=== PATIENT | female | born 2000 | race Caucasian/White ===

== ENCOUNTER 2022-06-06 22:28 | Emergency (ER) | payer OTHER, SELFPAY ==
[2022-06-06 22:49] VITALS: BP 152/100; PULSE 70; RESP 16; TEMP 36.9; O2SAT 100; BMI 28.2
--- NOTE | 2022-06-06 22:53 | CRLHL7_ITS ---
For Patients: As a result of the Century Cures Act, medical imaging exams and procedure reports are released immediately into your electronic medical record. You may view this report before your referring provider. If you have questions, please contact your health care provider. Indication: Injury and pain. Technique: Left wrist 3 views. Comparison: None. Findings/Impression: Bones: Oblique nondisplaced fracture in the shaft of the left 3rd metacarpal. No other osseous abnormality. Joint spaces: Unremarkable. Soft tissues: Unremarkable. Dictated by Rogers Dillon MD @ 06/06/2022 11:18:24 PM (Electronically Signed)
--- NOTE | 2022-06-07 00:35 | ED.NURSE ---
xr images pushed to [facility] and radiology report sent with patient.
--- NOTE | 2022-06-07 03:20 | ED.UPPEXIN ---
HPI - Extremity Injury (Upper) General Chief Complaint: Extremity Pain/Injury, Upper Stated Complaint: Left Wrist Injury - Fall Time Seen by Provider: 06/06/22 22:54 History of Present Illness HPI narrative: 21-year-old young woman here with complaint of pain in her left hand. Was attending her 1st rugby practice at [employer]. Is somewhat unclear how she got hurt but ended up with her face in the dirt. Left hand appears to have been pinned or trapped or pulled somehow. No apparent significant head injury. No loss of consciousness. She is not nauseated. It is not intensely complaining of pain. No complaint of neck or back pain. Sounds like she had a rather remote injury to this arm as a child. Is right-handed. Related Data Home Medications Medication Instructions Recorded Confirmed birthcontrol 06/06/22 Allergies Allergy/AdvReac Type Severity Reaction Status Date / Time No Known Drug Allergies Allergy Verified 06/06/22 22:49 Review of Systems Status of ROS: Reports: 6 or more systems reviewed and unremarkable except as noted in History and below Exam Narrative: Exam Narrative: Pleasant. NAD. Well built. She is favoring her left arm/hand. Breathing easily. Speaking fluidly. The head looks to be atraumatic. Examination of the left upper extremity is without clear abrasion and no pain to palpation until where she indicated the mid dorsum of the left hand. She is sore to palpation over the left 3rd metacarpal. Well-perfused peripherally with intact sensation. No deformity other than some mild swelling over the dorsum of the hand. There is what I thought initially bruising over the distal ulna that this sounds to have been more staining from the turf. Able to open and close all fingers against resistance; just causes pain. Const: Vital Signs, click to edit/add: Vital Signs - 24 hr 06/06/22 22:49 Temperature 98.4 F Pulse Rate [Pulse Oximeter] 70 Respiratory Rate 16 Blood Pressure [Ri ght Upper Arm] 152/100 H Pulse Oximetry 100 Oxygen Delivery Me thod Room Air Documenting provider has reviewed patient's vital signs: yes Course Vital Signs Vital signs: Initial Vital Signs Temperature 98.4 F 06/06/22 22:49 Temperature Source Temporal Artery Scan 06/06/22 22:49 Pulse Rate 70 06/06/22 22:49 Respiratory Rate 16 06/06/22 22:49 Blood Pressure 152/100 H 06/06/22 22:49 Blood Pressure Mean 117 06/06/22 22:49 Pulse Oximetry 100 06/06/22 22:49 Oxygen Delivery Method 06/06/22 22:49 Vital Signs Temperature 98.4 F 06/06/22 22:49 Pulse Rate 70 06/06/22 22:49 Respiratory Rate 16 06/06/22 22:49 Blood Pressure 152/100 H 06/06/22 22:49 Pulse Oximetry 100 06/06/22 22:49 Oxygen Delivery Method 06/06/22 22:49 Temperature 98.4 F 06/06/22 22:49 Pulse Rate 70 06/06/22 22:49 Respiratory Rate 16 06/06/22 22:49 Blood Pressure 152/100 H 06/06/22 22:49 Pulse Oximetry 100 06/06/22 22:49 Oxygen Delivery Method 06/06/22 22:49 MDM - Extremity Injury (Upper) MDM Narrative Medical decision making narrative: X-rays of the left hand wrist area review by my read an oblique comminuted? fracture of the shaft of the 3rd metacarpal. Nondisplaced. Return to place an ulnar gutter splint. Think this just does capture the 3rd metacarpal though has to be shifted a little bit. Tolerates this well. Zara alignment. Discharge Plan Discharge Clinical Impression: Closed fracture of third metacarpal bone Patient Disposition: Home, Self-Care Condition: Stable Additional Instructions: You can remove the splint carefully to ice a few times daily over the next few days if you like. If you have a primary that does Orthopedics/casting you could follow-up with them late Saturday or Saturday. Could also follow-up with Orthopedics locally phone number [phone]. Following up in [place] is just fine as well. It would be okay to wait to be seen until early next week; point is we want swelling to be mostly resolved by the time you would be casted. Elevate for comfort. Can take up to 800 mg of ibuprofen or up to 1000 mg of acetaminophen per dose; alternative to the ibuprofen can be up to 500 mg naproxen 2 times daily. Prescriptions: No Action birthcontrol Stand Alone Forms: [employer] Info Instructions
== END 2022-06-07 00:37 | disposition home or self-care (01) ==
LOC: ED 06-07 00:25
PROVIDERS: Emergency Provider Family Medicine
DX: S62.303A Unspecified fracture of third metacarpal bone, left hand, initial encounter for closed fracture (principal)
CPT/HCPCS: 29515; 73110; 99283; 99284

== ENCOUNTER 2024-02-11 19:02 | Emergency (ER) | payer OTHER, SELFPAY ==
[2024-02-11 19:14] VITALS: BP 147/86; PULSE 77; RESP 16; TEMP 36.6; O2SAT 100; BMI 28.1
--- NOTE | 2024-02-11 19:15 | CRLHL7_ITS ---
For Patients: As a result of the Century Cures Act, medical imaging exams and procedure reports are released immediately into your electronic medical record. You may view this report before your referring provider. If you have questions, please contact your health care provider. INDICATION: Fall COMPARISON: None. TECHNIQUE: Two radiographic view(s) of the left wrist. FINDINGS: No evident acute displaced fracture. 4 millimeters negative ulnar variance. The joint spaces are grossly preserved. IMPRESSION: 1. No evident acute displaced fracture. If there is clinical concern for acute scaphoid fracture, recommend a repeat radiograph in 7-10 days. 2. Negative ulnar variance measuring 4 millimeters. Dictated by Ki Asif MD @ 02/11/2024 7:53:12 PM (Electronically Signed)
--- NOTE | 2024-02-11 19:33 | ED.UPPEXIN ---
HPI - Extremity Injury (Upper) General Time Seen by Provider: 19:33 Date Seen: 02/11/24 Chief Complaint: Extremity Pain/Injury, Upper Stated Complaint: L wrist injured at rugby Time Seen by Provider: 02/11/24 19:33 Source: patient, RN notes reviewed and old records reviewed Mode of arrival: ambulatory Limitations: no limitations History of Present Illness HPI narrative: 23-year-old female who comes in with left wrist injury. Another player landed on her left wrist at toward the practice and has pain around the wrist on the dorsum. Denies any other injuries right-handed Related Data Home Medications ?Medication ?Instructions ?Recorded ?Confirmed birthcontrol 06/06/22 Allergies Allergy/AdvReac Type Severity Reaction Status Date / Time No Known Drug Allergies Allergy Verified 06/06/22 22:49 Exam Narrative: Exam Narrative: General: well nourished , NAD Head: Atraumatic and normocephalic ENT: External ears and external nose are normal Eyes: Conjunctiva clear, pupils are equal reactive, external ocular motions are intact Neck: Full spontaneous range of motion of the neck Lungs: No respiratory distress Musculoskeletal: Mild tenderness on the extensor surface of the left wrist. Pain with passive wrist extension past the 80?, pain with passive wrist flexion past 80?, minimal pain with supination and pronation. Neurologic: No gross focal neurologic deficits Skin: No rashes Psych: Mood and affect are appropriate Const: Vital Signs, click to edit/add: Vital Signs - 24 hr 02/11/24 19:14 Temperature 98 F Pulse Rate [Pulse Oximeter] 77 Respiratory Rate 16 Blood Pressure [Ri ght Upper Arm] 147/86 H Pulse Oximetry 100 Oxygen Delivery Me thod Room Air Course Course ED Course: Reviewed prior emergency department records, patient previously seen November 2022 for 3rd metacarpal fracture. X-rays ordered from triage and independently interpreted by me negative for acute fracture. Patient with left wrist pain after injury today. Motion is relatively preserved with only some pain on the extensor surface with extremes of extension and flexion, no pain with passive or active supination or pronation. Wrist splint and anticipate discharge pending Radiology interpretation of x-ray Reevaluation(s) Time of Reevaluation #1: 19:54 Reevaluation #1: Reviewed radiology interpretation of wrist x-ray which is negative for acute fracture. Patient is stable for discharge Vital Signs Vital signs: Initial Vital Signs Temperature 98 F 02/11/24 19:14 Temperature Source Temporal Artery Scan 02/11/24 19:14 Pulse Rate 77 02/11/24 19:14 Respiratory Rate 16 02/11/24 19:14 Blood Pressure 147/86 H 02/11/24 19:14 Blood Pressure Mean 106 H 02/11/24 19:14 Pulse Oximetry 100 02/11/24 19:14 Oxygen Delivery Method Room Air 02/11/24 19:14 Vital Signs Temperature 98 F 02/11/24 19:14 Pulse Rate 77 02/11/24 19:14 Respiratory Rate 16 02/11/24 19:14 Blood Pressure 147/86 H 02/11/24 19:14 Pulse Oximetry 100 02/11/24 19:14 Oxygen Delivery Method Room Air 02/11/24 19:14 Temperature 98 F 02/11/24 19:14 Pulse Rate 77 02/11/24 19:14 Respiratory Rate 16 02/11/24 19:14 Blood Pressure 147/86 H 02/11/24 19:14 Pulse Oximetry 100 02/11/24 19:14 Oxygen Delivery Method Room Air 02/11/24 19:14 Discharge Plan Discharge Clinical Impression: Sprain and strain of wrist Patient Disposition: Home, Self-Care Condition: Stable Instructions: Wrist Sprain (ED) Additional Instructions: Elevate as able. Ice 15-20 minutes at a time every 2-3 hours while awake for the next 24 hours. Wear wrist splint for comfort Follow-up with orthopedics in 5-7 days if not better. Phone number is [phone] Activity Level: Activity as Tolerated and Wear Brace Discharge Diet: Regular Prescriptions: No Action birthcontrol Follow Up/Referrals: Provider,Not a Local [Primary Care Provider] - Stand Alone Forms: [employer] Info Instructions
--- OUTSIDE RECORDS SUMMARY | 2024-02-11 20:00 | XMS_ITS | Referral Summary ---
Author Organization [facility] Address [address] [place] [address] Care Team Providers Care Press Offbearer Name Role Phone Janki Ang M.D., M.P.H. Primary Care Pro vider Source Comments Patient records contain information from all sites at [facility]. For routine questions regarding patient records, call [phone] during business hours, M-F 8:00 AM - 5:00 PM Central Time. Record requests for emergency care only can be directed to [phone] at any time.[facility] Encounters Date Type Department Care Team Description 01/07/2024 Orders Only RST PCP [facility] Janki Ang M.D., M.P.H. Hypercholesterolemia from Last 3 Months Allergies No known active allergies Medications Medication Sig Dispensed Refills Start Date End Date Status acetaminophen (for_TYLENOL) 325 mg tablet Take 1-2 tablets by mouth as needed. pain 03/08/2014 Active ibuprofen (for_ADVIL,MOTRIN) 200 mg tablet Take 1 tablet by mouth as needed. pain 03/08/2014 Active norgestimate-ethinyl estradioL (ORTHO TRI-CYCLEN) 0.18 mg/0.215 mg/0.25 mg-35 mcg (28) per tablet TAKE 1 TABLET BY MOUTH DAILY DIRECTED 84 tablet 3 02/21/2022 Active cetirizine (ZyrTEC) 10 mg capsule Take 10 mg by mouth daily. 10/31/2022 Active benzonatate (TESSALON) 200 mg capsuleIndications:C ough Bronchospastic Take 1 capsule (200 mg total) by mouth 3 (three) times a day as needed for cough for up to 30 doses. Take with a full glass of water. 30 capsule 11/14/2022 Active Additional Information Patient not taking.Reported on 12/04/2022 predniSONE (DELTASONE) 20 mg tabletIndications:Co ugh Bronchospastic Take two tablets (40 mg) by mouth once daily for 2-3 days, then one tablet (20 mg) once daily for 7-10 days, then one-half tablet (10 mg) once daily for 7-10 days 30 tablet 12/04/2022 Active Active Problems Problem Noted Date Diagnosed Date Acne Cystic 10/11/2017 Hypercholesterolemia 07/29/2017 Overview (11/06/2021): HISTORY: - genetically proven familial hypercholesterolemia on her father's side. Dad and sister Elaina have higher lipid - per [facility] consult in 2018, Dr. Callahan, she likely has mixed hyperlipidemia due to lifestyle rather than FH. - Lipids: 11/15 Xynhb=506, DG=312, HDL=68, LBX=447, non-HDL+160 11/11 Kkhor=415, UZ=223 Immunizations Name Administration Dates Next Due 4vHPV (discontinued) 03/08/2014,09/30/2013 9vHPV 12/28/2014 DTaP / Hib 11/16/2003 DTaP, Unspecified 08/11/2007, 3,2002,2002 H1N1 Inj 08/17/2009 HepA Pediatric/Adolescent 03/23/2008,08/11/2007 HepB Pediatric/Adolescent 05/24/2003 Hib-HepB 2002,2002 IPV 08/11/2007, 3,2002,2002 Influenza Split 04/10/2012 Influenza, Injectable, Mdck, Quadrivalent 02/16/2021 Influenza, Seasonal, Injectable 05/05/2003,03/19 MCV4 (Menactra)(Discontinued) 12/18/2019 MCV4, Unspecified 09/30/2013 MMR 08/08/2005,08/10/2003 MMRV 08/11/2007 PCV7 (discontinued) 04/11/2004, 3,2002,2002 SARS-COV-2 (COVID-19) - PFIZ ER (Discontinued)(12 years or older) 04/24/2021,09/20/2020,08/30/2020 SARS-COV-2 (COVID-19) - PFIZ ER BIVALENT TS(Discontinued)(12 YEARS OR OLDER) 04/27/2022 Tdap 09/30/2013 LEXIS 08/10/2003 influenza LAIV (Nasal) (2 ye ars through 49 years) 03/08/2014 influenza trivalent LAIV (Na xavi) (2 years through 49 years) 05/08/2011,02/26/2009 influenza trivalent vaccine (6 months and older)(PF) 03/21/2010,03/23/2008 influenza vaccine quad (FLUZONE/FLUARIX) (6 months and older)(PF) 04/27/2022,04/06/2020,04/18/2013 Social History Tobacco Use Types Packs/Day Years Used Date Smoking Tobacco: Never Smokeless Tobacco: Never Tobacco Cessation:Counseling Given: Not Answered Alcohol Use Standard Drinks/Week Comments No 0 (1 standard drink = 0.6 oz pur e alcohol) Humiliation, Afraid, Rape, and Kick questionnair e Answer Date Recorded Within the last year, have y ou been afraid of your partner or ex-partner? No 08/10/2022 Within the last year, have y ou been humiliated or emotionally abused in other ways by your partner or ex-partner? No Within the last year, have y ou been kicked, hit, slapped, or otherwise physically hurt by your partner or ex-partner? No 08/10/2022 Within the last year, have y ou been raped or forced to have any kind of sexual activity by your partner or ex-partner? No 08/10/2022 Social Connection and Isolat ion Panel [NHANES] Answer Date Recorded In a typical week, how many times do you talk on the phone with family, friends, or neighbors? Three times a week 08/10/2022 How often do you get togethe r with friends or relatives? More than three times a week 08/10/2022 How often do you attend [facility] or oriental orthodox services? Never 08/10/2022 Do you belong to any clubs o r organizations such as yazidism groups, unions, fraternal or athletic groups, or school groups? Yes 08/10/2022 How often do you attend meet ings of the clubs or organizations you belong to? More than 4 times per year 08/10/2022 Are you , , di vorced, , never , or living with a partner? Never 08/10/2022 AUDIT-C Answer Date Recorded Q1: How often do you have a drink containing alc ohol? Monthly or less 08/10/2022 Q2: How many drinks containi ng alcohol do you have on a typical day when you are drinking? 3 or 4 08/10/2022 Q3: How often do you have si x or more drinks on one occasion? Never 08/10/2022 Overall Financial Resource Strain (CARDIA) Answe r Date Recorded How hard is it for you to pa y for the very basics like food, housing, medical care, and heating? Not hard at all 08/10/2022 PHQ-2 Answer Date Recorded PHQ-2 Score 0 06/07/2022 [facility] - Occupational Stress Questionnaire Answer Date Recorded Do you feel stress - tense, restless, nervous, or anxious, or unable to sleep at night because your mind is troubled all the time - these days? Rather much 08/10/2022 Exercise Vital Sign Answer Date Recorde d On average, how many days pe r week do you engage in moderate to strenuous exercise (like a brisk walk)? 3 days 08/10/2022 On average, how many minutes do you engage in exercise at this level? 70 min 08/10/2022 Hunger Vital Sign Answer Date Recorded Within the past 12 months, y ou worried that your food would run out before you got the money to buy more. Never true 08/11/19 23 Within the past 12 months, t he food you bought just didn't last and you didn't have money to get more. Never true 08/10/2022 PRAPARE - Transportation Answer Date Re corded In the past 12 months, has l ack of transportation kept you from medical appointments or from getting medications? No 07/25 In the past 12 months, has l ack of transportation kept you from meetings, work, or from getting things needed for daily living? No 08/10/2022 Housing Stability Vital Sign Answer Roger e Recorded In the last 12 months, was t here a time when you were not able to pay the mortgage or rent on time? No 08/10/2022 In the last 12 months, how many places have you lived? 2 08/10/2022 In the last 12 months, was t here a time when you did not have a steady place to sleep or slept in a longterm (including now)? No 08/10/2022 Nutrition Answer Date Recorded Nutrition: EVOO Fat Source No 08/10 On average, how many serving s of fruits and vegetables do you eat per day (serving size is equal to 1 cup or approximately the size of a tennis ball)? 2-3 08/10/2022 Dental Answer Date Recorded Dental: Regular Dentist Yes 06/05/19 Employment Answer Date Recorded Employment status N/A 08/10/2022 Education Answer Date Recorded What is the highest level of school you have completed or the highest degree you have received? 12th grade 09/27/2020 Sex and Gender Information Value Date Recorded Sex Assigned at Female 10/11/2021 9:55 AM CDT Gender Identity Female 10/11/2021 9:55 AM CDT Sexual Orientation Straight 10/11/2021 9: 55 AM CDT Last Filed Vital Signs Vital Sign Reading Time Taken Comments Blood Pressure 123/85 12/04/2022 9:11 AM CDT Pulse 85 12/04/2022 9:11 AM CDT regul ar Temperature 36.1 ??C (97 ??F) 12/04/2022 9:11 AM CDT Respiratory Rate 20 06/28/2018 11:21 PM [employer] Oxygen Saturation 100% 11/14/2022 6:05 PM CDT Inhaled Oxygen Concentration - - Weight 93.6 kg (206 lb 5.6 oz) 12/04/2022 9:11 A M CDT Height 170.4 cm (5' 7.09) 12/04/2022 9:11 AM CD T Body Mass Index 32.24 12/04/2022 9:11 AM CDT Plan of Treatment Upcoming Encounters Date Type Department Care Team (Late st Contact Info) Description 02/26/2024 8:00 AM CDT Office Visit Department of Family Medicine, [facility], in [place], [place] [address] [place] [address] Karen Giordano MPAS, P.A.-C. [address] [place] [phone] Procedures Procedure Name Priority Date/Time Associated Diagnosis Comments LIPID PANEL, S Routine 01/25/2023 9:51 AM CDT Hypercholesterolemia from Last 3 Months or Most Recently Relevant to Health Maintenance Results * (ABNORMAL) Lipid Panel (01/25/2023 9:51 AM CDT) Triglycerides 174(H) mg/dL 01/25/2023 12:20 PM CDT DTL Comment: ----REFERENCE VALUE---- Normal: <150 mg/dL Borderline High: 150-199 mg/dL High: 200-499 mg/dL Very High: > or =500 mg/dL Cholesterol, Total 266(H) mg/dL 2022 12:20 PM CDT DTL Comment: ----REFERENCE VALUE---- Desirable: < 200 mg/dL Borderline High: 200 - 239 mg/dL High: > or = 240 mg/dL Cholesterol, LDL, Calculated 173(H) mg/dL 01/25/2023 12:20 PM CDT DTL Comment: ----REFERENCE VALUE---- Desirable: <100 mg/dL Above Desirable: 100-129 mg/dL Borderline High: 130-159 mg/dL High: 160-189 mg/dL Very High: >=190 mg/dL ----ADDITIONAL INFORMATION---- LDL cholesterol calculated using the Link/NIH equation. Cholesterol, HDL, S 61 >=50 mg/dL 01/25/2023 12:20 PM CDT DTL Cholesterol, Non-HDL, Calculated 205(H) mg/dL 01/25/2023 12:20 PM CDT DTL Comment: ----REFERENCE VALUE---- Desirable: <130 mg/dL Above Desirable: 130-159 mg/dL Borderline High: 160-189 mg/dL High: 190-219 mg/dL Very High: > or =220 mg/dL Fasting (8 HR or more) No 01/25/2023 11:45 AM CDT DTL Blood (Blood, Venous) 01/25/2023 9:51 AM CDT 01/25/2023 11:45 AM CDT Janki Ang M.D., M.P.H. LAB BLOOD ADD-ON [facility] [address] [place] [address], [facility] DTL [facility] [address] [place] [address] from Last 3 Months or Most Recently Relevant to Health Maintenance Care Teams Press Offbearer Relationship Specialty Start Date End Date Janki Ang M.D., M.P.H. [address] [place] [address] PCP - General 12/28/22
--- OUTSIDE RECORDS SUMMARY | 2024-02-11 20:00 | XMS_ITS | Clinical Summary ---
Author Organization [facility] Address [address] [place] [address] Care Team Providers Care Multiple Effect Evaporator Operator Name Role Phone Janki Ang M.D., M.P.H. Primary Care Pro vider Source Comments Patient records contain information from all sites at [facility]. For routine questions regarding patient records, call [phone] during business hours, M-F 8:00 AM - 5:00 PM Central Time. Record requests for emergency care only can be directed to [phone] at any time.[facility] Allergies No known active allergies Medications Medication [...] lifestyle rather than FH. - Lipids: 11/15 Libpu=469, UR=941, HDL=68, OTP=209, non-HDL+160 11/11 Glnnc=342, EH=760 Encounters Date Type Department Care Team Description 01/07/2024 Orders Only RST PCP HLTH MNT Janki Ang M.D., M.P.H. Hypercholesterolemia from Last 3 Months Immunizations Name Administration Dates Next Due 4vHPV [...] quad (FLUZONE/FLUARIX) (6 months and older)(PF) 04/27/2022,04/06/2020,04/18/2013 Family History Medical History Relation Name Comments High cholesterol Father Imtiaz Hyperlipidemia Father Imtiaz Coronary artery disease Maternal Grandfather Diabetes Maternal Grandfather Diabetes mellitus type II Maternal Grandfather Hypertension Maternal Grandfather Prostate cancer Maternal Grandfather Stroke Maternal Grandfather Transient ischemic attack Maternal Grandfather Breast cancer Maternal Grandmother late 4 0s High cholesterol Maternal Grandmother Hyperlipidemia Maternal Grandmother No Known Problems Mother Glenny High cholesterol Paternal Grandfather Hyperlipidemia Paternal Grandfather Hypertension Paternal Grandfather Valvular heart disease Paternal Grandfather ablation, pacemaker High cholesterol Paternal Grandmother Hypertension Paternal Grandmother adrenal cancer Paternal Grandmother No Known Problems Sister 1 Hugh Hyperlipidemia Sister 2 Elaina familial Learning disorder Sister 2 Elaina Relation Name Status Comments Father Imtiaz Alive Maternal Grandfather Alive Maternal Grandmother Alive Mother Glenny Alive Paternal Grandfather Alive Paternal Grandmother Alive Sister 1 Hugh Alive Sister 2 Elaina Alive Social History Tobacco Use Types Packs/Day Years [...] week 08/10/2022 How often do you attend chur ch or rastafarian services? Never 08/10/2022 Do you belong to any clubs o r organizations such as lutheran groups, unions, fraternal or athletic groups, or [...] Answer Date Recorded PHQ-2 Score 0 06/07/2022 [facility] of Occupat ional Health - Occupational Stress [...] money to buy more. Never true 08/11/19 Within the past 12 months, t he [...] place to sleep or slept in a retirement (including now)? No 08/10/2022 Nutrition Answer Date [...] CDT Respiratory Rate 20 06/28/2018 11:21 PM [employer] P[employer]ER Oxygen Saturation 100% 11/14/2022 6:05 PM CDT [...] CDT Office Visit Department of Family Medicine, [facility], in [place], [place] [address] [place] [phone] Karen Giordano, MPAS, P.A.-C. [address] [place] [address] Health Maintenance Due Date Last Done Comments Cervical Cancer Screening 2002 Hearing Screening during Well Child Visit 2002 Hepatitis C Screening 2002 TB Screening during Well Child Visit 2002 1 week Well Child Check-Up 2002 1 month Well Child Check-Up 2002 2 month Well Child Check-Up 2002 4 month Well Child Check-Up 2002 6 month Well Child Check-Up 01/06/2003 9 month Well Child Check-Up 04/08/2003 12 month Well Child Check-Up 07/09/2003 15 month Well Child Check-Up 10/07/2003 18 month Well Child Check-Up 01/07/2004 2 year Well Child Check-Up 07/09/2004 30 month Well Child Check-Up 01/06/2005 3 year Well Child Check-Up 07/09/2005 Well Child Check-Up Completed in Past Year 07/09/2005 4 year Well Child Check-Up 07/09/2006 5 year Well Child Check-Up 07/09/2007 6 year Well Child Check-Up 07/09/2008 7 year Well Child Check-Up 07/09/2009 8 year Well Child Check-Up 07/09/2010 9 year Well Child Check-Up 07/09/2011 10 year Well Child Check-Up 07/09/2012 11 year Well Child Check-Up 07/09/2013 12 year Well Child Check-Up 07/09/2014 13 year Well Child Check-Up 07/09/2015 14 year Well Child Check-Up 07/09/2016 15 year Well Child Check-Up 07/09/2017 18 year Well Child Check-Up 07/09/2018 17 year Well Child Check-Up 07/09/2019 18 year Well Child Check-Up 07/09/2020 19 year Well Child Check-Up 07/09/2021 20 year Well Child Check-Up 07/09/2022 Depression Screening (Annual PHQ-2) 05/27/2023 23 year Well Child Check-Up 07/09/2023 Well Child Check-Up (WCC) 07/09/2023 DTaP,Tdap,and Td Vaccines (7 - Td or Tdap) 10/01/2023 09/30/2013, 08/11/2007, 11/16/2003, Additional history exists COVID-19 Vaccine (2022- season) 2024 04/27/2022, 04/24/2021, 09/20/2020, Additional history exists Lipid (Cholesterol) Screening 01/26/2024 01/25/2023, 11/04/2021, 11/01/2017, Additional history exists Influenza Vaccine (#1) 2024 , 02/16/2021, 04/06/2020, Additional history exists Hepatitis B Vaccines Completed 05/24/2003, 2002, 2002 Pneumococcal vaccine (0-64 years) Aged Out 04/11/2004, 02/09/2003, 2002, Additional history exists No longer eligible based on patient's age to complete this topic HPV Vaccines Completed 12/28/2014, 02/24, 09/30/2013 Meningococcal Vaccine Completed 12/18/2019, 014 Procedures Procedure Name Priority Date/Time Associated Diagnosis [...] Janki Ang M.D., M.P.H. LAB BLOOD ADD-ON [facility] [place] [address] [place] [address], [place] DTL [facility] [address] [place] [address] from Last 3 Months or Most Recently Relevant to Health Maintenance Care Teams Multiple Effect Evaporator Operator Relationship Specialty Start Date End Date Janki Ang M.D., M.P.H. [address] [place] [phone] PCP - General 12/28/22
--- OUTSIDE RECORDS SUMMARY | 2024-02-11 20:00 | XMS_ITS | Encounter Summary ---
Author Organization [facility] Address [address] [place] [address] Care Team Providers Care Roll Bucker Name Role Phone Jakni Ang M.D., M.P.H. Primary Care Pro vider Encounter Details Date Type Department Care Team (Late st Contact Info) Description 01/07/2024 Orders Only RST PCP HLTH MNT Janki Ang M.D., M.P.H. [address] [place] [address] Hypercholesterolemia Social History Tobacco Use Types Packs/Day Years Used Date Smoking Tobacco: Never Smokeless Tobacco: Never Alcohol Use Standard Drinks/Week Comments No 0 [...] often do you attend chur ch or pentecostalism services? Never 08/10/2022 Do you belong to any clubs o r organizations such as mormonism groups, unions, fraternal or athletic groups, or [...] Answer Date Recorded PHQ-2 Score 0 06/07/2022 [facility] of Occupat ional Health - Occupational Stress [...] Orientation Straight 10/11/2021 9: 55 AM CDT documented as of this encounter Plan of Treatment Upcoming Encounters Date Type Department Care Team (Late st Contact Info) Description 02/26/2024 8:00 AM CDT Office Visit Department of Family Medicine, [facility], in [place], [place] [address] [place] [phone] Karen Giordano MPAS, P.A.-C. [address] [place] [address] Scheduled Orders Name Type Priority Associated Diagnoses Orde r Schedule Lipid Panel Lab Routine Hypercholesterolemia Expected: 01/21/2024, Expires: 07/05/2024 documented as of this encounter Visit Diagnoses Diagnosis Hypercholesterolemia documented in this encounter Additional Health Concerns Assessment Noted Time PHQ-9 Depression Total Score: 0 03/04/20 17 12:01 AM CDT documented as of this encounter Care Teams Roll Bucker Relationship Specialty Start Date End Date Janki Ang M.D., M.P.H. [address] [place] [address] PCP - General 12/28/22 documented as of this encounter
--- OUTSIDE RECORDS SUMMARY | 2024-02-11 20:00 | XMS_ITS ---
Author Organization [facility] Address [address] [place] [address] Care Team Providers Care Data Center Engineer Name Role Phone Unavailable Unavailable Unavailable Surgery Details Not on file Complications Check Surgery Details section. Procedure Estimated Blood Loss Check Surgery Details section. Procedure Findings Check Surgery Details section. Procedure Specimens Taken Check Surgery Details section.
--- OUTSIDE RECORDS SUMMARY | 2024-02-11 20:00 | XMS_ITS | Encounter Summary ---
Author Organization [facility] Address [address] [place] [address] Care Team Providers Care Auger Machine Offbearer Name Role Phone Janki Ang M.D., M.P.H. Primary Care Pro vider Encounter Details Date Type Department Care Team (Late st Contact Info) Description 03/23/2003 Historical Ophthalmology RST OPH Godwin Patel M.D. Social History Tobacco Use Types Packs/Day Years Used Date Smoking Tobacco: Never Assessed Sex and Gender Information Value Date Recorded Sex Assigned at Female 10/11/2021 9:55 AM CDT Gender Identity Female 10/11/2021 9:55 AM CDT Sexual Orientation Straight 10/11/2021 9: 55 AM CDT documented as of this encounter Progress Notes * Godwin Patel M.D. - 03/23/2003 12:00 AM CST Eye General CHIEF COMPLAINT lacrimal duct obstruction - right worse than left HISTORY OF PRESENT ILLNESS 7 month old female here for evaluation of lacrimal duct obstruction. She has had mattering and tearing since . The past 2 weeks it has gotten much worse. Antibiotic eye drops have been used intermittently. This morning it was difficult for her to open her eyes. IMPRESSION / REPORT / PLAN #1 congenital obstruction nasolacrimal duct bilateral discussed in detail with parents; probing indicated; RBA including possibility of more than one procedure, they wish to proceed, scheduled for 03/29/03 DIAGNOSIS #1 congenital obstruction nasolacrimal duct bilateral CDM Reports - EYEGEN Id: [id number] Status: Fnl documented in this encounter Plan of Treatment Upcoming Encounters Date Type Department Care Team (Late st Contact Info) Description 02/26/2024 8:00 AM CDT Office Visit Department of Family Medicine, [facility], in [place], [place] [address] [place] [phone] Karen Giordano, HARITHA, P.A.-C. [address] [place] [phone] documented as of this encounter Visit Diagnoses Not on filedocumented in this encounter Additional Health Concerns Infection Onset Date Last Indicated Resolved Time COVID19 Pending 04/07/2020 04/07/2020 04/07/2020 1 1:14 PM DIRECTOR NURSES' REGISTRY COVID19 Pending 05/21/2021 05/21/2021 05/21/2021 8 :42 PM DIRECTOR NURSES' REGISTRY documented as of this encounter Care Teams Auger Machine Offbearer Relationship Specialty Start Date End Date Janki Ang M.D., M.P.H. [address] [place] [phone] PCP - General 12/28/22 documented as of this encounter
== END 2024-02-11 20:02 | disposition home or self-care (01) ==
PROVIDERS: Emergency Provider Family Medicine
DX: S63.502A Unspecified sprain of left wrist, initial encounter (principal); W03.XXXA Other fall on same level due to collision with another person, initial encounter; Y93.63 Activity, rugby
CPT/HCPCS: 29125; 73100; 99283